=== PATIENT | male | born 1945 | race Two or more races ===

== ENCOUNTER 2017-01-05 03:52 | Emergency (ER) | payer MEDICARE, OTHER ==
[~2017-01-05] VITALS: Ht 170.2 cm; Wt 73.0 kg
[~2017-01-05 03:52] MED LIST: ALBU18HF2 INH; AMLO10TA2 PO; ASPI-807 PO; BENA5TAB2 PO; DOXA1TAB2 PO; HYDR12.55 PO; OMEP20CA10 PO; SIMV20TA6 PO
[2017-01-05 04:26] LABS: BASOPHILS % (AUTO) 0.6 % (0.0-2.0); DIFF TOTAL % 100 %; EOSINOPHILS # (AUTO) 0.1 /CMM (0.0-0.7); EOSINOPHILS % (AUTO) 1.4 % (0.0-6.0); HEMATOCRIT 45 % (39-51); HEMOGLOBIN 14.9 g/dL (13.5-17.5); LYMPHOCYTES # (AUTO) 2.5 /CMM (0.8-4.8); LYMPHOCYTES % (AUTO) 35.2 % (20.0-44.0); MEAN CORPUSCULAR HEMOGLOBIN 26 PG (26.0-33.0); MEAN CORPUSCULAR HGB CONC 33 g/dl (31.0-36.0); MEAN CORPUSCULAR VOLUME 80 fL (80-96); MONOCYTES # (AUTO) 0.5 /CMM (0.1-1.30); NEUTROPHILS % (AUTO) 55.8 % (43.0-81.0); PLATELET COUNT (AUTO) 228 /CMM (150-450); RED BLOOD CELL COUNT(AUTO) 5.65 MIL/uL (4.5-6.0); WHITE BLOOD COUNT (AUTO) 7.1 K/uL (4.3-11.0)
[2017-01-05] MEDS ORDERED: ASPIRIN 81 MG TAB.CHEW PO ONE (04:30)
[2017-01-05] MEDS ORDERED: ONDANSETRON HCL/PF 4 MG/2 ML VIAL IVP ONE (04:30)
[2017-01-05] MEDS ORDERED: NITROGLYCERIN PACKET 1 GM PACKET TD ONE (04:30)
[2017-01-05] MEDS ORDERED: MECLIZINE HCL 12.5 MG TABLET PO ONE (04:30)
[2017-01-05] MEDS ORDERED: NITROGLYCERIN PACKET 1 GM PACKET ONE (04:35)
[2017-01-05] MEDS ORDERED: ASPIRIN 81 MG TAB.CHEW ONE (04:35)
[2017-01-05] MEDS ORDERED: MECLIZINE HCL 25 MG TABLET ONE (04:35)
[2017-01-05] MEDS ORDERED: ONDANSETRON HCL/PF 4 MG/2 ML VIAL ONE (04:35)
[2017-01-05 04:36] LABS: INR 1.05 (0.87-1.13)
[2017-01-05 04:51] LABS: ANION GAP 6 (5-14); CALCIUM, SERUM 9.1 mg/dL (8.5-10.1); CARBON DIOXIDE 33 mmol/L (21-32); CHLORIDE 106 mmol/L (98-107); CREATININE 0.8 mg/dL (0.6-1.3); GLUCOSE 125 mg/dL (74-106); SODIUM SERUM 141 mmol/L (136-145); UREA NITROGEN, BLOOD 16 mg/dL (7-18)
[2017-01-05 04:58] LABS: TROPONIN I < 0.017 ng/mL (0.00-0.056)
[2017-01-05] MEDS ORDERED: HYDROCODONE/APAP 10/325MG 1 EA TABLET PO ONE (05:00)
[2017-01-05] MEDS ORDERED: LORAZEPAM 0.5 MG TABLET PO ONE (05:00)
[2017-01-05 05:05] LABS: ALANINE AMINOTRANSFERASE 26 U/L (12-78); ALBUMIN 3.7 g/dL (3.4-5.0); ASPARTATE AMINOTRANSFERASE 14 U/L (15-37); BILIRUBIN,DIRECT 0.1 mg/dL (0.0-0.2); BILIRUBIN,TOTAL 0.4 mg/dL (0.2-1.0); INDIRECT BILIRUBIN 0.3 mg/dL (0.0-1.1); TOTAL PROTEIN, SERUM 7.5 g/dL (6.4-8.2)
[2017-01-05] MEDS ORDERED: HYDROCODONE/APAP 10/325MG 1 EA TABLET ONE (05:07)
[2017-01-05] MEDS ORDERED: LORAZEPAM 1 MG TABLET ONE (05:07)
[2017-01-05 05:10] LABS: CHOLESTEROL 218 mg/dL (<200); HDL CHOLESTEROL 41 mg/dL (40-60); LDL 146 mg/dL (0-99); TRIGLYCERIDES 183 mg/dL (30-150)
[2017-01-05] MEDS ORDERED: METOCLOPRAMIDE HCL 10 MG/2 ML VIAL ONE (05:48)
[2017-01-05] MEDS ORDERED: METOCLOPRAMIDE HCL 10 MG/2 ML VIAL IV ONE (06:00)
[2017-01-05 06:56] VITALS: BP 130/72
== END 2017-01-05 06:56 | disposition home or self-care (01) ==
LOC: ER 03:58
DX: R51 Headache (principal); R42 Dizziness and giddiness; I10 Essential (primary) hypertension; J44.9 Chronic obstructive pulmonary disease, unspecified; K21.9 Gastro-esophageal reflux disease without esophagitis; F17.200 Nicotine dependence, unspecified, uncomplicated; R79.1 Abnormal coagulation profile; Z95.811 Presence of heart assist device
CPT/HCPCS: 36415; 70450; 71010; 80048; 80061; 80076; 83880; 84484; 85025; 85730; 93005; 96374; 96375; 99285; A4606; J2405; J2765; J8597; Z7610